=== PATIENT | female | born 1970 | race Caucasian/White ===

== ENCOUNTER → 2017-02-14 | Outpatient (CLI) | payer OTHER ==
--- NOTE | 2017-02-14 19:40 | CONS ---
This is a 46-year-old pleasant female patient who claims to have been diagnosed having narcolepsy by a sleep specialist in [place], [place], Dr. Deandre Medley. The patient has brought with her a polysomnogram that was performed on 05/25/2010 by the same doctor and she was found to have no major obstructive sleep apnea. No MSLT has been done. The patient was told to have narcolepsy. She was treated initially with Adderall and then placed on Vyvanse 70 mg on a daily basis. Upon further questioning, the patient has no significant or pathologic hypersomnia. In fact, the patient had difficulties in falling asleep and she has typical symptoms of insomnia. She claims to sleep only 3 to 4 hours per night. She feels exhausted and by the time she goes to bed around 11:00 p.m, she is tired, but not sleepy. She cannot shut off her brain and she becomes quite preoccupied by various things, which prevents her from going to sleep. Ultimately after being in bed for around 30 minutes to an hour, she will fall asleep for a few hours and then she would wake up and unable to go back to sleep. She estimates her sleep hours to be around 3 to 4 hours. She has been told to snore excessively, yet she has not been told to stop breathing at night. No grinding of the teeth. She has some degree of anxiety. No depression. No nocturnal heartburn. No nocturnal palpitations. No dry mouth. No restlessness in the lower extremities. No substance abuse. No alcoholism. No intake of excessive amount of caffeinated beverages. During the day, the patient does not take any naps. She has no sleep paralysis. No hallucinations. No cataplexy and now no family history of narcolepsy. She feels tired during the day and Vyvanse helps her stay awake and keeps her stimulated. Note that over the years she has gained a significant amount of weight and she may need to be also considered for obstructive sleep apnea. I noted that blood pressure is 170/110, which is quite elevated. PAST MEDICAL HISTORY: Hypertension, hypothyroidism, irritable bowel syndrome, migraines, cervical spinal fusion, questionable narcolepsy per history, herniated disc, lumbar spine disease L5-S1, fibromyalgia, degenerative disc disease, right hip bursitis, osteoarthritis. Past surgical history includes x2, right shoulder surgery, right carpal tunnel release, partial hysterectomy and cervical effusion. Outpatient medication list includes: 1. Vyvanse 70 mg p.o. daily. 2. Lisinopril 10 mg p.o. daily. 3. Relpax 40 mg p.o. daily. 4. Zofran on an as-needed basis. 5. Vitamin D 50,000 units q. week. 6. [place] 7.5/325, 3 times a day. 7. Motrin 800 mg p.o. 3 times a day. 8. Hydrochlorothiazide 25 mg p.o. daily and 9. Synthroid 50 mcg p.o. daily. SOCIAL HISTORY: Nonsmoker. No history of alcoholism, no history of IV drugs. FAMILY HISTORY: Noncontributory. REVIEW OF SYSTEMS: Twelve-point review of systems was done and positive findings were all mentioned above in the history of present illness. Of significance is the absence of any grinding of the teeth. No restlessness in the lower extremities. No sleepwalking or sleep talking. No sleep paralysis, hallucinations or cataplexy. No falling asleep during the day. No falling asleep while driving a car. No motor vehicle accident because of falling asleep. BP is 170/110, pulse 97, respirations 16, temperature 98.9. BMI is 45.5. Weight is 248. Height is 5 feet 2 inches. Neck size 16-1/4, saturation 97% on room air. GENERAL APPEARANCE: Calm, comfortable. HEENT: Short neck, crowding posterior pharynx. There is no goiter or neck mass. LUNGS: Clear to auscultation. HEART: Sounds are regular rate and rhythm. Normal S1, S2. No S3. No S4. No murmurs. ABDOMEN: Soft, nontender. No organomegaly. EXTREMITIES: No clubbing. No cyanosis or clubbing. IMPRESSION: 1. Chronic insomnia. Rule out comorbid insomnia. Contributing factors could be fibromyalgia, anxiety/depression. Very doubtful that the patient has narcolepsy; in fact, the patient has no hypersomnia at all. No sleep attacks. No cataplexy. No hallucinations. No sleep paralysis. I think she has been wrongly diagnosed as narcolepsy and she has been given stimulants to enhance her daytime alertness. I do not have objective documentation that the patient has narcolepsy. Her sleep study that was done several years back showed no evidence of sleep apnea; however, over the years, the patient has gained weight and she has developed features of obstructive sleep apnea that need to be further pursued. 2. Hypertension with poorly controlled blood pressure. 3. Hypothyroidism. 4. Irritable bowel syndrome. 5. Migraines. 6. Cervical spine fusion/chronic neck pain. 7. Fibromyalgia. 8. Chronic lumbar disc disease with previous lumbar spinal fusion. 9. Degenerative arthritis. 10. Bursitis. PLAN: 1. Encourage weight loss. 2. Implement good sleep hygiene measures. 3. Avoid caffeinated beverages at nighttime. 4. Relaxation techniques. 5. Promote sleep by stimulus control and various other conservative measures to treat her insomnia. 6. Stop Vyvanse. 7. Give the patient is 50 mg of trazodone for sleep induction and maintenance. 8. Proceed with a screening polysomnogram evaluating underlying obstructive sleep apnea. 9. Will continue to follow and make further recommendations based on her progress.
== END | disposition home or self-care (01) ==
LOC: SLEEP 13:37
PROVIDERS: ATTEND Internal Medicine Critical Care Medicine
DX: F51.04 Psychophysiologic insomnia (principal); I10 Essential (primary) hypertension; E03.9 Hypothyroidism, unspecified; K58.9 Irritable bowel syndrome, unspecified; G43.909 Migraine, unspecified, not intractable, without status migrainosus; Z98.1 Arthrodesis status; G89.29 Other chronic pain; M54.2 Cervicalgia; M79.7 Fibromyalgia; M51.36 Other intervertebral disc degeneration, lumbar region; M19.90 Unspecified osteoarthritis, unspecified site; M71.9 Bursopathy, unspecified; Z79.899 Other long term (current) drug therapy
CPT/HCPCS: 99211

== ENCOUNTER → 2017-04-25 | Outpatient (CLI) | payer OTHER ==
--- NOTE | 2017-04-25 17:24 | PN ---
This is a 46-year-old female patient coming in follow-up regarding her chronic insomnia. The patient has comorbid insomnia and contributing factors for her insomnia, fibromyalgia, anxiety and depression. She also has chronic pain and she is complaining of bursitis of the right hip. Pain kicks in mainly at nighttime and she is unable to sleep on her right side of her body. She underwent a sleep study on 03/22/2017 due to concern of obstructive sleep apnea. The sleep study was completed. The patient demonstrated efficiency 66%. She slept for a total of 4 hours and 51 minutes. Sleep latency was 5.7% and the study was done while the patient was taking 10 mg of Ambien. Nevertheless, around 3:17 a.m. the patient woke up following having REM induced obstructive hypopneas and she was unable to go back to sleep. This lowers her overall sleep efficiency. She is currently off Vyvanse that was given to her by another neurologist/sleep specialist who diagnosed her with narcolepsy. I do not see evidence of narcolepsy in this patient. I tried trazodone on this patient for sleep induction prior to Ambien and this caused her some stomach upset and this got switched to Ambien 10 mg at bedtime. She is sleeping better. She is a bit tired and sleepy during the day. However, she is trying to avoid taking any naps and she is trying to consolidate most of her sleep hours at nighttime. Obviously fibromyalgia and chronic pain is an ongoing issue and the patient is being seen by Dr. David in this regard. Her current vital signs are as follows: Blood pressure is 166/90, pulse 106, respirations 16, temperature 98.0, saturation 99% on room air. Neck size 16 inches. Height is 5 feet 2 inches. Weight is 249. GENERAL APPEARANCE: Calm, comfortable. HEENT: Short neck, crowding posterior pharynx. There is no goiter or neck masses. LUNGS: Clear to auscultation. HEART: Sounds are regular rate and rhythm. Normal S1 and S2. No S3, no S4. No murmurs. ABDOMEN: Soft, nontender. No organomegaly. EXTREMITIES: No edema. No cyanosis or clubbing. IMPRESSION: 1. Comorbid insomnia. Overall sleep efficiency 66% while being on Ambien 10 mg at bedtime. Among contributing factors for insomnia including fibromyalgia and chronic pain. 2. Cervical neck and lumbar spine pain. 3. Right hip bursitis. 4. Mild REM specific obstructive hypopneas with an AHI of less than 5. 5. Hypertension. 6. Hypothyroidism. 7. Irritable bowel syndrome. 8. Degenerative arthritis. 9. Migraine. PLAN: 1. Encourage weight loss. 2. Refill Ambien 10 mg p.o. at bedtime. 3. Suggest going back on [place] for pain control at a dose of 5 or 10 mg depending on pain response. 4. Keep the patient off Vyvanse for now. 5. Avoid take any naps during the day. 6. See me back in the office in follow up regarding her chronic insomnia in 6 months' time.
== END ==
LOC: SLEEP 13:25
PROVIDERS: ATTEND Internal Medicine Critical Care Medicine
DX: G47.00 Insomnia, unspecified (principal); I10 Essential (primary) hypertension; E03.9 Hypothyroidism, unspecified; G43.909 Migraine, unspecified, not intractable, without status migrainosus; M19.90 Unspecified osteoarthritis, unspecified site; K58.9 Irritable bowel syndrome, unspecified; M70.71 Other bursitis of hip, right hip